=== PATIENT | male | born 1935 | race Caucasian/White ===

== ENCOUNTER 2017-03-02 08:20 | Day surgery (SDC) | payer MEDICARE ==
[2017-03-01 14:37] VITALS: BMI 24.0
[2017-03-02 08:39] LABS: #Basophils 0.1 thou/uL (0.0-0.2); #Eosinphils 0.1 thou/uL (0.0-0.7); #Lymphocytes 2.3 thou/uL (1.20-3.40); #Monocytes 0.9 thou/uL (0.11-0.59); #Neutrophils 3.9 thou/uL (1.40-6.50); %Eosinophils 1.8 % (0.0-10.0); %Lymphocytes 31.8 % (21.0-51.0); %Monocytes 12.3 % (0.0-10.0); Hematocrit 49.9 % (42.0-52.0); Mean Platelet Volume 6.8 fL (7.4-10.4); Red Blood Cell (RBC) Count 5.31 mill/uL (4.70-6.10); White Blood Cell (WBC) Count 7.4 thou/uL (4.8-10.8)
[2017-03-02 08:44] LABS: PTT 31.9 SEC (22.9-36.1); Prothrombin Time 13.8 SEC (12.0-14.7)
[2017-03-02 10:14] VITALS: BP 133/97; TEMP 97.7
--- NOTE | 2017-03-02 15:27 | RAD ---
RADIOGRAPH CHEST 2 VIEWS: Date: 03/02/17. Time: 1:33 p.m. HISTORY: An 82-year-old male with right upper lobe pulmonary mass, status post right lung biopsy. TECHNIQUE: Two frontal upright views in inspiration and expiration. COMPARISON: 02/09/17. FINDINGS: Again noted is the laterally positioned right upper lobe pulmonary mass. There is no evidence of pn eumothorax. Left subclavian dual-lead pacemaker, ectatic, tortuous thoracic aorta, and multiple sig nificantly displaced old left rib fractures, are again noted. No acute airspace density. Mild hazi ness around the right lung mass. That is the only potential interval change. IMPRESSION: 1. No pneumothorax following right lung biopsy. 2. Right upper lobe pulmonary mass. 3. Multiple, old, displaced, traumatic left rib fractures. RACHAEL [] POS: [facility]
--- NOTE | 2017-03-02 15:40 | CT ---
CT GUIDED RIGHT LUNG BIOPSY 03/02/17 HISTORY: Growing right upper lobe spiculated pulmonary mass. TECHNIQUE: Signed informed consent obtained. Patient placed supine on CT table with right upper extremity eleva arelis. Grid markers placed across the right inferior axillary region. The following procedure was perf ormed under step CT guidance. Overlying skin at the right infra-axillary area was prepped and drape d in the usual sterile fashion. 25 gauge needle was used to apply buffered lidocaine superficially. A 22 gauge spinal needle was used to apply buffered lidocaine to deeper tissues, including the right chest wall. A 19 gauge introducer needle was incrementally advanced in tandem with the spinal needl e, and was used to anesthetize the right intercostal muscle. Stylet was removed from the introducer needle. 20 gauge biopsy needle was placed through the introducer needle in coaxial fashion, and the gun was fired, yielding a 2 cm long core tissue sample, which was placed on a slide and was evaluate d by the pathologist using touch preparation. In addition to necrotic tissue, lesional tissue was id entified. One additional repeat core pass was obtained, and this sample was placed directly into for tyrell. The introducer needle was removed. Repeat scanning was performed. No pneumothorax. Patient to lerated the procedure well. No complications. IMPRESSION: Successful CT guided 20 gauge right upper lobe pulmonary mass biopsy x 2, without complications. POS: [facility]
--- NOTE | 2017-03-03 11:17 | CT ---
CT GUIDED RIGHT LUNG BIOPSY: 03/02/17 HISTORY: Growing right upper lobe spiculated pulmonary mass. TECHNIQUE: Signed informed consent obtained. Patient placed supine on CT table with right upper extremity eleva arelis. Grid markers placed across the right inferior axillary region. The following procedure was perf ormed under step CT guidance. Overlying skin at the right infra-axillary area was prepped and drape d in the usual sterile fashion. 25 gauge needle was used to apply buffered lidocaine superficially. A 22 gauge spinal needle was used to apply buffered lidocaine to deeper tissues, including the right chest wall. A 19 gauge introducer needle was incrementally advanced in tandem with the spinal needl e, and was used to anesthetize the right intercostal muscle. Stylet was removed from the introducer needle. 20 gauge biopsy needle was placed through the introducer needle in coaxial fashion, and the gun was fired, yielding a 2 cm core tissue sample, which was placed on a slide and was evaluated by the pathologist using touch preparation. In addition to necrotic tissue, lesional tissue was identif ied. One additional repeat core pass was obtained, and this sample was placed directly into formalin . The introducer needle was removed. Repeat scanning was performed. No pneumothorax. Patient tolerat ed the procedure well. No complications. IMPRESSION: Successful CT guided 20 gauge right upper lobe pulmonary mass biopsy x 2, without complications.
== END 2017-03-02 14:00 | disposition home or self-care (01) ==
LOC: CT 08:20
PROVIDERS: ATTEND Internal Medicine Critical Care Medicine
DX: J84.10 Pulmonary fibrosis, unspecified (principal); J44.9 Chronic obstructive pulmonary disease, unspecified; Z88.5 Allergy status to narcotic agent; Z88.0 Allergy status to penicillin; Z79.82 Long term (current) use of aspirin; Z79.899 Other long term (current) drug therapy
CPT/HCPCS: 32405; 36415; 71010; 77012; 85025; 85610; 85730; 88305; 88312; 88313; 88333

== ENCOUNTER 2017-03-30 12:37 | Outpatient (CLI) | payer MEDICARE ==
--- NOTE | 2017-03-30 16:39 | RAD ---
CHEST PA AND LATERAL: History: 82-year-old male with dyspnea. Comparison: 02-09-17 FINDINGS: Left ICD. Atherosclerosis of the aorta with ectasia. Multiple healed left rib fractures. Area of min imal abnormal parenchymal opacity in the right upper lobe laterally, decreasing in size from the donny or 02-09-17 study. Stable elevated left hemidiaphragm and costophrenic angle blunting. IMPRESSION: Approximately 2 cm diameter poorly circumscribed mass opacity in the upper right chest laterally dec reased in size from the prior 02-09-17 study. Stable left costophrenic angle blunting. Healed left rib fractures. Atherosclerosis of the aorta with ectasia. POS: [facility]
== END 2017-03-30 12:38 | disposition home or self-care (01) ==
LOC: RAD 12:37
PROVIDERS: ATTEND Internal Medicine Pulmonary Disease
DX: R06.00 Dyspnea, unspecified (principal); R22.2 Localized swelling, mass and lump, trunk; I70.0 Atherosclerosis of aorta
CPT/HCPCS: 71020

== ENCOUNTER 2017-05-23 10:47 | Outpatient (CLI) | payer MEDICARE ==
--- NOTE | 2017-05-23 14:45 | RAD ---
RADIOGRAPH CHEST 2 VIEWS: 05/23/2017 HISTORY: An 82-year-old male follow-up right upper lobe pulmonary nodule. COMPARISON: 03/30/2017 FINDINGS: The thoracic aorta is tortuous and ectatic. There is no evidence of air space density, pneumothorax, or pulmonary edema. There is no cardiomegaly or pleural effusion. There is an approximately 2 cm r ight upper lobe pulmonary mass located close to the right lateral pleural surface. The previously de monstrated small surrounding halo of mild infiltrate probably representing recent post-biopsy changes , have improved or resolved. Otherwise, there has been no overall significant interval change. Ther e is blunting of the posterior costophrenic angles bilaterally, probably representing pleural thicken ing. The same is true of the left lateral costophrenic angle. There is a dual-lead left subclavian pacemaker. Numerous old left rib fractures. IMPRESSION: 1) No acute cardiopulmonary findings. 2) Ectasia of thoracic aorta. 3) Right upper lobe pulmonary mass has not significantly changed in size since 03/30/2017. 4) Multiple old, traumatic, significantly displaced left rib fracture deformities. 5) Pacemaker. paige [] POS: [facility]
== END 2017-05-23 10:48 | disposition home or self-care (01) ==
LOC: RAD 10:47
PROVIDERS: ATTEND Internal Medicine Critical Care Medicine
DX: R06.00 Dyspnea, unspecified (principal); I77.810 Thoracic aortic ectasia; S22.42XD Multiple fractures of ribs, left side, subsequent encounter for fracture with routine healing; R91.8 Other nonspecific abnormal finding of lung field; Z95.0 Presence of cardiac pacemaker
CPT/HCPCS: 71020

== ENCOUNTER 2017-08-23 12:33 | Outpatient (CLI) | payer MEDICARE ==
--- NOTE | 2017-08-23 13:12 | RAD ---
CHEST PA AND LATERAL: History: 82-year-old male with history of dyspnea. Comparison: 05-23-17 FINDINGS: Persistent stable nodule in the right upper mid lung zone and stable healed rib fractures and some pl eural thickening in the left chest. Left ICD. Prominent atherosclerotic ectatic changes of the aorta. IMPRESSION: No acute intrathoracic disease. Stable nodular focus in the right upper lateral chest. No other signi ficant acute process. Atherosclerotic ectatic changes of the aorta. POS: [facility]
== END 2017-08-23 12:34 | disposition home or self-care (01) ==
LOC: RAD 12:33
PROVIDERS: ATTEND Internal Medicine Critical Care Medicine
DX: R06.00 Dyspnea, unspecified (principal); R91.1 Solitary pulmonary nodule; I70.0 Atherosclerosis of aorta
CPT/HCPCS: 71046

== ENCOUNTER 2018-02-20 09:35 | Outpatient (CLI) | payer MEDICARE ==
--- NOTE | 2018-02-20 11:45 | RAD ---
CHEST 2 VIEWS: Date: 02/20/18 COMPARISON: 08/23/17 exam. HISTORY: Dyspnea. FINDINGS: Heart size is upper limits of normal with a pacemaker in place. Old left rib fractures are seen. No i nfiltrative process or interval change since the prior exam. Nodular density in the right upper lobe appears stable. This density also does not appear definitely changed since the 05/23/17 study. IMPRESSION: Stable exam. POS: [facility]
== END 2018-02-20 09:36 | disposition home or self-care (01) ==
LOC: RAD 09:35
PROVIDERS: ATTEND Internal Medicine Critical Care Medicine
DX: R06.00 Dyspnea, unspecified (principal)
CPT/HCPCS: 71046

== ENCOUNTER 2018-09-06 13:54 | Outpatient (CLI) | payer MEDICARE ==
--- NOTE | 2018-09-06 14:05 | RAD ---
FXR Chest Pa Lat @ [facility] History: [Dyspnea] Comparison: Radiograph 2018 Findings: Unchanged appearance of the well-defined nodule right upper lobe. Scarring left lung base. Remote left-sided rib fractures. Heart size is enlarged. Mild ectasia of the aorta. Impression: No significant change in the radiographic appearance of the chest.
== END 2018-09-06 13:55 | disposition home or self-care (01) ==
LOC: RAD 13:54
PROVIDERS: ATTEND Internal Medicine Critical Care Medicine
DX: R06.00 Dyspnea, unspecified (principal)
CPT/HCPCS: 71046

== ENCOUNTER 2021-09-29 13:57 | Outpatient (CLI) | payer MEDICARE | END 2021-09-29 13:58 | disposition home or self-care (01) | LOC: RAD 13:57 | PROVIDERS: ATTEND Internal Medicine Critical Care Medicine | DX: R06.00 Dyspnea, unspecified (principal); R91.1 Solitary pulmonary nodule; Q79.1 Other congenital malformations of diaphragm; Z95.0 Presence of cardiac pacemaker | CPT/HCPCS: 71046 ==

== ENCOUNTER 2022-03-18 10:52 | Outpatient (CLI) | payer MEDICARE | END 2022-03-18 10:53 | disposition home or self-care (01) | LOC: RAD 10:52 | PROVIDERS: ATTEND Internal Medicine Critical Care Medicine | DX: R06.00 Dyspnea, unspecified (principal) | CPT/HCPCS: 71046 ==

== ENCOUNTER 2022-10-07 16:13 | Outpatient (CLI) | payer MEDICARE | END 2022-10-07 16:14 | disposition home or self-care (01) | LOC: BICRAD 16:13 | PROVIDERS: ATTEND Family Medicine | DX: S29.9XXA Unspecified injury of thorax, initial encounter (principal); M19.012 Primary osteoarthritis, left shoulder; M19.011 Primary osteoarthritis, right shoulder; R91.1 Solitary pulmonary nodule | CPT/HCPCS: 71111 ==

== ENCOUNTER 2023-12-06 11:45 | Outpatient (CLI) | payer MEDICARE | END 2023-12-06 11:46 | disposition home or self-care (01) | LOC: RAD 11:45 | PROVIDERS: ATTEND Internal Medicine Critical Care Medicine | DX: R06.00 Dyspnea, unspecified (principal); I51.7 Cardiomegaly; S22.42XA Multiple fractures of ribs, left side, initial encounter for closed fracture; J98.4 Other disorders of lung; R91.1 Solitary pulmonary nodule; Z95.0 Presence of cardiac pacemaker | CPT/HCPCS: 71046 ==